=== PATIENT | male | born 1985 | race Caucasian/White ===

== ENCOUNTER 2017-09-20 23:58 | Emergency (ER) | payer SELFPAY | END 2017-09-21 00:37 | disposition home or self-care (01) | LOC: ER 23:58 | DX: F15.10 Other stimulant abuse, uncomplicated (principal); F41.9 Anxiety disorder, unspecified; F32.9 Major depressive disorder, single episode, unspecified; F17.210 Nicotine dependence, cigarettes, uncomplicated; Z59.0 Homelessness; Z88.1 Allergy status to other antibiotic agents | CPT/HCPCS: 99283 ==